=== PATIENT | male | born 1990 | race African-American/Black ===

== ENCOUNTER 2017-09-12 18:37 | Emergency (ER) | payer OTHER ==
[~2017-09-12] VITALS: Ht 180.3 cm; Wt 77.1 kg
[~2017-09-12 18:37] MED LIST: FLAGYL500 MG PO
[2017-09-12] MEDS ORDERED: BACTRIM DS TAB1 EACH PO (19:53)
[2017-09-12] MEDS ORDERED: HYDROCODONE-AP1 EAC6 PO (19:53)
[2017-09-12] MEDS ORDERED: IBUPROFEN 600600 M1 PO (19:53)
[2017-09-12 20:22] VITALS: BP 124/65
== END 2017-09-12 20:24 | disposition home or self-care (01) ==
LOC: ER 18:37
DX: L03.011 Cellulitis of right finger (principal)